=== PATIENT | male | born 1995 | race Caucasian/White ===

== ENCOUNTER 2020-12-23 02:27 | Emergency (ER) | payer SELFPAY ==
[2020-12-23 02:30] VITALS: BP 115/71; PULSE 79; RESP 16; TEMP 36.4; O2SAT 97; BMI 19.8
--- NOTE | 2020-12-23 02:30 | ED_ITS ---
HPI - Eye Problem General: Chief complaint: Eye Problems Stated complaint: foreign obj right eye History of Present Illness: HPI Narrative: 25-year-old male patient presents to the emergency department with right eye problem. He reports was working on a deck today when saw dust injured his right eye. He reports was wearing safety goggles -reports felt something in his eye immediately, he reports intense rubbing of the eye. He states approximately 6 hours ago, developed foreign body sensation with pain to the right eye. He reports photophobia and pain with opening of the eye. He denies drainage, fever or loss of vision. He reports extensive eye irrigation with contact solution. He reports his continued rubbing the eye to help with foreign body sensation. chief complaint: eye pain, eye injury and foreign body Onset description: sudden Duration: constant and progressively worsening Location: right eye Eye Symptoms: burning, redness, foreign body sensation and photophobia Place: work Mechanism: direct trauma Severity: moderate Context: trauma Associated symptoms: Reports no associated symptoms; Denies fever(s), headache(s), nausea, neck pain or vomiting Treatments Prior to Arrival: irrigated eye and OTC eye drops Review of Systems General: Reports: 10 or more systems reviewed and unremarkable except in HPI and below Const: Denies: fever(s), chills, body aches, fatigue, malaise or diaphoresis Eyes: Reports: blurry vision, photophobia, eye discomfort, eye discharge, eye redness and increased production of tears (rt); Denies: floaters or seeing flashes ENMT: Denies: throat pain, dental pain or disequilibrium Card: Denies: chest pain, palpitations or irregular heart rhythm Resp: Denies: dyspnea, productive cough, non-productive cough or wheezing GI: Denies: abdominal pain, nausea or vomiting : Denies: dysuria Musc: Denies: neck pain, back pain, joint pain or muscle cramps Skin/Breast: Denies: rash, pruritus, erythema, skin tenderness or changes in skin color Neuro: Denies: headache(s), weakness in extremities or behavioral changes Sarmad/Lymph: Denies: easy bruising PFSH ED PFSH: Medical History 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 Surgical History History of ureter repair Family History Other Cancer Diabetes Hypertension Stroke Denies family history of Dementia Social History Smoking and tobacco status: former smoker Second hand smoke exposure: No Smoking risk assessment/counseling performed?: No Alcohol intake: current Alcohol intake frequency: holidays/special occasions only Desire information about alcohol rehabilitation?: No Counseling given: No Desire information about substance/drug rehabilitation?: No Counseling given: No Adopted: No Caregiver/support person: No Lives independently: Yes Household members: significant other Housing: House Marital status: Single Number of children: 1 service: No Current occupational status: employed Current occupation: [employer] Pets and animals: Yes History of recent travel: No Current gender identity: Male Physical Exam Const: COMMON NORMALS: no acute distress, patient oriented x3, healthy appearing, alert and well nourished GENERAL APPEARANCE: cooperative, comfo rtable, well kempt, well developed and well hydrated; not anxious, not combative, not ill appearing and not frail appearing NUTRITIONAL APPEARANCE: thin ORIENTATION/CONSCIOUSNESS: Yes awake, Yes orient ed to person, Yes oriented to place and Yes oriented to time HENMT: COMMON NORMALS: normocephalic, atraumatic, Normal external nose present, Normal nasal mucous membranes and turbinates present and moist oral mucous membranes HEAD & SCALP: normal to inspection, normocephalic and atraumatic FACE & SINUS: normal facial exam and face symmetric NOSE: Normal external nose present and Normal nasal mucous membranes and turbinates present Eye: COMMON NORMALS: Equal, round and reactive pupils present and EOMs intact bilaterally GENERAL EYE: appearance normal, both eyes and all related structures and normal light reflex VISUAL GRIFFITH: No peripheral vision loss and No central vision loss ALIGNMENT: Yes alignment normal PERIORBITAL: periorbital findings normal EYELID: eyelids normal CONJUNCTIVA: Yes conjunctival abnormal positive right conjunctival injection SCLERA: scleral abnormal Laterality of scleral abnormality: positive right scleral injection CORNEA: Yes fluorescein used (large abrasion at rt upper and rt lower, no FB visualized) and other (eyelid inverted for visualization) PUPIL: Yes Equal, round and reactive pupils present, Yes pupil size - right Right pupil size (mm): 4 and Yes pupil size - left Left pupil size (mm): 4 DIRECT OPHTHALMOSCOPY: Yes normal light reflex Neck/C-Spine: COMMON NORMALS: full ROM and no lymphadenopathy GENERAL: Yes normal visual inspection and Yes trachea midline CERVICAL SPINE: Yes cervical ROM normal Lymph: LYMPHATIC: no lymphadenopathy noted Chest: COMMONS NORMALS: normal inspection of the chest Resp: COMMON NORMALS: normal respiratory effort and clear to auscultation bilaterally AUSCULTATION: clear to auscultation bilaterally Cardio: COMMON NORMALS: regular rhythm, S1 normal heart sound present and S2 normal heart sound present RHYTHM: regular rhythm HEART SOUNDS: S1 normal heart sound present and S2 normal heart sound present Back/Pelvis: COMMON NORMALS: thoracic and lumbar spine normal to inspection Extremity: COMMON NORMALS: normal to inspection and capillary refill normal Neuro: COMMON NORMALS: patient oriented x3 and no focal motor deficits SENSORIUM/ORIENTATION: Yes alert, Yes oriented to person, Yes oriented to place and Yes oriented to time Psych: COMMON NORMALS: mental status grossly normal, Normal thought process present and cooperative APPEARANCE: Yes well kempt ACTIVITY/MOTOR BEHAVIOR: Yes appropriate eye contact THOUGHT PROCESS: Normal thought process present Skin: COMMON NORMALS: no rashes or lesions noted and turgor normal GENERAL SKIN EXAM: no rashes or lesions noted and turgor normal Course Vital Signs: Vital signs: Vital Signs Temperature 97.6 F 12/23/20 02:30 Pulse Rate 79 12/23/20 02:30 Respiratory Rate 16 12/23/20 02:30 Blood Pressure 115/71 12/23/20 02:30 Pulse Oximetry 97 12/23/20 02:30 Discharge Plan Discharge Patient Disposition: Home Clinical Impression: Corneal abrasion Qualifiers: Encounter type: initial encounter Laterality: right Qualified Code(s): S05.01XA - Injury of conjunctiva and corneal abrasion without foreign body, right eye, initial encounter Condition: Stable Prescriptions: New IBU 600 mg tablet 600 mg PO TID PRN (Reason: pain) Qty: 20 RF: 0 Refresh Liquigel 1 % drops, liquid gel 2 drp ophthalmic (eye) Q2H PRN (Reason: dry eye(s)) Qty: 15 RF: 0 Discharge Orders: Discharge ED (Routine); Ordered 12/23/20 Ordered By: Arielle Cristobal Discharge Diet: Usual diet Discharge Activity: Limit activity as instructed Patient Instructions: Corneal Abrasion (ED), Eye Foreign Body (ED), Eye Pain (ED), Opioid Safety Activity Restrictions/Additional Instructions: social science research assistant will contact you with appt for Dr Manzanares, booth cleaner Cool compresses to the affected eye several times daily to help with pain May take Tylenol with prescribed ibuprofen as needed for pain, take Tylenol as directed, do not take [id number] Aleve, Motrin or Advil as duplication of therapy can occur with prescribed ibuprofen Polytrim antibiotic drops to the right eye every 4 hours for 7 days even if better If you develop difficulty with vision, worsening eye pain or purulent drainage, return to the emergency department Coding Level of Care Code ED Health Information Specialist for [facility]
[2020-12-23 02:35] VITALS: BP 115/71; PULSE 77; RESP 16; TEMP 36.8; O2SAT 98
[2020-12-23] MEDS: fluorescein 1 mg Strip EYE-RIGHT (02:35)
[2020-12-23] MEDS: tetracaine 0.5% Op Soln 4 mL Btl 1 DROP EYE-RIGHT (02:36)
[2020-12-23] MEDS: eye irrigation 30 mL Btl EYE-BOTH (02:37)
[2020-12-23] MEDS: HYDROcodone-acetaminophen 5-325 mg Tablet 1 TAB PO (02:57)
[2020-12-23] MEDS: polymyxin-trimethoprim Op Soln 10 mL Btl 2 DROP EYE-RIGHT (02:57)
[2020-12-23 03:06] VITALS: PULSE 76; O2SAT 98
--- NOTE | 2020-12-24 10:30 | DCPLANNER ---
physician practice manager had message to schedule a follow up appointment for patient with Dr. Manzanares. physician practice manager called patient [phone], unable to speak with patient at this time, a voicemail was left for patient to return caseworker intake phone call. physician practice manager also called Dr. Manzanares office and told them about patient and faxed patients information to the clinic. Clinic will call patient with appointment information.
--- NOTE | 2021-01-01 12:11 | DCPLANNER ---
Patient had a follow up appointment scheduled for 12.26.[address] Manzanares - appointment was cancelled.
== END 2020-12-23 03:08 | disposition home or self-care (01) ==
PROVIDERS: Emergency Provider Nurse Practitioner Family
DX: S05.01XA Injury of conjunctiva and corneal abrasion without foreign body, right eye, initial encounter (principal); Z87.891 Personal history of nicotine dependence; X58.XXXA Exposure to other specified factors, initial encounter
CPT/HCPCS: 99283